=== PATIENT | female | born 1945 | race African-American/Black ===

== ENCOUNTER 2022-06-14 04:17 | Observation (INO) | payer MEDICARE, OTHER, SELFPAY ==
[2022-06-14] VITALS (15 sets, daily range): BP systolic 121–161; BP diastolic 43–77; PULSE 51–70; RESP 16–20; TEMP 36.4–36.6; O2SAT 95–99; BMI 36.6; BMI 40.1
--- NOTE | 2022-06-14 04:41 | ECG_ITS ---
APPROVED REPORT Exam: Resting ECG HR:58 bpm ECG Measurements Heart Rate 58 AXES [place] 172 P 91 QRSd 156 QRS 90 QT 471 T -18 QTc 467 Conclusion SINUS BRADYCARDIA WITH OCCASIONAL SUPRAVENTRICULAR PREMATURE COMPLEXES RIGHT BUNDLE BRANCH BLOCK [120+ ms QRS DURATION, UPRIGHT V1, 40+ ms S IN I/aVL/V4/V5/V6] MODERATE T-WAVE ABNORMALITY, CONSIDER ANTEROLATERAL ISCHEMIA [-0.1+ mV T-WAVE IN V3-V6] MODERATE T-WAVE ABNORMALITY, CONSIDER INFERIOR ISCHEMIA [-0.1+ mV T-WAVE IN II/aVF] ABNORMAL ECG UNCONFIRMED REPORT Electronically signed by : Chester Wilson MD 06/17/2022 21:17:23
[2022-06-14 05:04] LABS: Basophils # 0.1 K/mm3 (0-0.2); Basophils % 0.5 % (0.1-2.0); Eosinophils # 0.2 K/mm3 (0.0-0.4); Hematocrit 36.5 % (37.0-47.0); Hemoglobin 12.1 g/dL (12.2-16.2); Lymphocytes # 1.5 K/mm3 (0.7-4.5); Lymphocytes % 15.7 % (10-50); Mean Corpuscular HGB Conc 33.1 g/dL (31.8-35.4); Mean Corpuscular Hemoglobin 31.8 pg (27.0-31.2); Mean Corpuscular Volume 95.9 fl (81-99); Mean Platelet Volume 7.9 fl (7.4-10.4); Monocytes # 0.4 K/mm3 (0.1-1.0); Monocytes % 4.4 % (1.7-9.3); Neutrophils # 7.4 K/mm3 (1.8-7.8); Neutrophils % 77.3 % (37.0-80.0); Platelet Count 319 K/mm3 (142-424); Red Blood Count 3.81 M/mm3 (4.20-5.40); Red Cell Distribution Width 13.6 % (11.5-17.5); White Blood Count 9.6 K/mm3 (4.8-10.8)
--- NOTE | 2022-06-14 05:07 | CT_ITS ---
PROCEDURE INFORMATION: Exam: CT Abdomen And Pelvis With Contrast Exam date and time: 06/14/2022 5:40 AM Age: 76 years old Clinical indication: Nausea and vomiting and other: Diarrhea; Additional info: N/v/d TECHNIQUE: Imaging protocol: Computed tomography of the abdomen and pelvis with contrast. Radiation optimization: All CT scans at this facility use at least one of these dose optimization techniques: automated exposure control; mA and/or kV adjustment per patient size (includes targeted exams where dose is matched to clinical indication); or iterative reconstruction. Contrast material: ISOVUE; Contrast volume: 75 ml; Contrast route: IV; COMPARISON: No relevant prior studies available. FINDINGS: Lungs: Ddyy-ga-qgyyuktd peripheral reticular and ground-glass type opacities in the lung bases which are nonspecific, but are favored to be linear atelectasis/fibrosis, greater on the right. Heart: Coronary artery calcifications. Mild cardiomegaly. Diaphragm: Small to moderate hiatal hernia Liver: Possible fatty infiltration of the liver, which is suboptimally evaluated after IV contrast administration. Gallbladder and bile ducts: Normal. No calcified stones. No ductal dilation. Pancreas: Normal. No ductal dilation. Spleen: Punctate calcified splenic granulomata. Adrenal glands: Normal. No mass. Kidneys and ureters: Mild bilateral renal cortical scarring. No hydronephrosis. Stomach and bowel: Colonic diverticulosis. No evidence of acute diverticulitis. Some segments of the colon appear to have mild wall thickening, but this is favored to be due to relative nondistention. No evidence of pericolonic fat stranding. Appendix: No evidence of appendicitis. Intraperitoneal space: Unremarkable. No free air. No significant fluid collection. Vasculature: Moderate vascular calcifications Lymph nodes: Unremarkable. No enlarged lymph nodes. Urinary bladder: Unremarkable as visualized. Reproductive: Hysterectomy. Bones/joints: Severe degenerative changes of the spine. Other osteoarthritic changes. No acute fracture. Soft tissues: Unremarkable. IMPRESSION: 1. No evidence of an acute intra-abdominal process. 2. Colonic diverticulosis. 3. Vascular calcifications including coronary artery calcifications. 4. Rhtr-sg-ideupkcx peripheral reticular and ground-glass type opacities in the lung bases which are nonspecific, but are favored to be linear atelectasis/fibrosis, greater on the right. 5. Small to moderate hiatal hernia. 6. Other findings as detailed in the body of the report.
--- NOTE | 2022-06-14 05:07 | HMH.EDNVD ---
ED Disposition Clinical Impression: Vertigo, Renal insufficiency Disposition: Admitted as Observation Condition on Discharge: Fair Instructions: DI for Diarrhea and Traveler's Diarrhea -- Adult, DI for Diarrhea and Traveler's Diarrhea -- Child, DI for Nausea -- Adult, DI for Nausea -- Child Referrals: Kayla Gore PA [Primary Care Provider] - - Critical Care Critical Care Time: No Attestation: On 06/14/22, the high probability of a clinically significant, sudden or life threatening deterioration of the following system(s) required my full and direct attention, intervention and personal management. The time I documented below is in addition to time spent performing reported procedures but includes the following listed in this critical care notation. Medical Decision Making - Medical Records Medical records reviewed: Yes: I reviewed the patient's medical records. - Benjamin Inquiry Pt receiving controlled substance: No Vital Signs: 06/14/22 04:19 06/14/22 04:23 06/14/22 04:53 Temperature 97.7 F Temperature Source Oral Pulse Rate 56 L 58 L Pulse Rate [Right] 70 Respiratory Rate 20 18 18 Blood Pressure 121/43 L 143/62 H Blood Pressure [Right Arm] 121/48 L Blood Pressure Mean 69 72 Blood Pressure Mean [Right Arm] 72 Blood Pressure Source [Right Arm] Automatic Cuff 02 Sat by Pulse Oximetry 95 99 96 Oxygen Delivery Method Room Air 06/14/22 05:23 06/14/22 07:18 06/14/22 07:53 Temperature Temperature Source Pulse Rate 51 L 54 L 52 L Pulse Rate [Right] Respiratory Rate 18 18 18 Blood Pressure 145/72 H 148/65 H 128/70 Blood Pressure [Right Arm] Blood Pressure Mean 96 92 103 Blood Pressure Mean [Right Arm] Blood Pressure Source [Right Arm] 02 Sat by Pulse Oximetry 96 96 96 Oxygen Delivery Method 06/14/22 08:23 Temperature Temperature Source Pulse Rate 56 L Pulse Rate [Right] Respiratory Rate 18 Blood Pressure 141/66 H Blood Pressure [Right Arm] Blood Pressure Mean 91 Blood Pressure Mean [Right Arm] Blood Pressure Source [Right Arm] 02 Sat by Pulse Oximetry 98 Oxygen Delivery Method - Lab Data Lab results reviewed: Yes: I reviewed the patient's lab results. Lab Results 06/14/22 04:25: WBC 9.6, RBC 3.81 L, Hgb 12.1 L, Hct 36.5 L, MCV 95.9, MCH 31.8 H, MCHC 33.1, RDW 13.6, Plt Count 319, MPV 7.9, Neut % (Auto) 77.3, Lymph % (Auto) 15.7, [place] % (Auto) 4.4, Eos % (Auto) 2.0, Baso % (Auto) 0.5, Neut # (Auto) 7.4, Lymph # (Auto) 1.5, [place] # (Auto) 0.4, Eos # (Auto) 0.2, Baso # (Auto) 0.1, ESR 66 H 06/14/22 04:25: Sodium 141, Potassium 3.5, Chloride 105, Carbon Dioxide 28, Anion Gap 11.5, BUN 28 H, Creatinine 1.30 H, Estimated Creat Clear 57, Estimated GFR 40 L, Est GFR ( Amer) 48 L, Glucose 159 H, Calcium 9.7, Total Bilirubin 0.2, AST 49 H, ALT 42, Alkaline Phosphatase 137 H, Troponin I < 0.01, C-Reactive Protein 3.0, Total Protein 7.1, Albumin 4.1, Globulin 3.0, Albumin/Globulin Ratio 1.4, Procalcitonin 0.047 06/14/22 04:25: Lipase 104 06/14/22 07:15: Urine Color Yellow, Urine Appearance Clear, Urine pH 5.5, Ur Specific [place] 1.010, Urine Protein Negative, Urine Glucose (UA) Negative, Urine Ketones Negative, Urine Blood Negative, Urine Nitrate Negative, Urine Bilirubin Negative, Urine Urobilinogen 0.2, Ur Leukocyte Esterase Negative, Urine RBC Occasional, Urine WBC Occasional, Ur Squamous Epith Cells Occasional, Urine Bacteria Trace 06/14/22 07:35: SARS-CoV-2 (PCR) Not detected, Influenza A Untype (PCR) Not detected, Influenza Type B (PCR) Not detected Result diagrams: 06/14/22 04:25 06/14/22 04:25 Orders (Tests/Meds): ED MEDICATIONS Generic Name Dose Route Start Last Admin Trade Name Freq PRN Reason Stop Dose Admin Sodium Chloride 8 ml 06/14/22 04:57 Sodium Chloride 0.9% 10ml Vial IV 07/14/22 04:56 NEEDED PRN dilute pepcid Discontinued Medications Generic Name Dose Route Start Last Admin Trade Name Freq PRN Reason
[2022-06-14 05:08] LABS: Alanine Aminotransferase 42 U/L (12-78); Albumin Level 4.1 g/dl (3.5-5.0); Albumin/Globulin Ratio 1.4 (1.1-1.8); Alkaline Phosphatase 137 U/L (38-126); Anion Gap 11.5 mEq/L (5-15); Aspartate Amino Transferase 49 U/L (14-36); Bilirubin,Total 0.2 mg/dl (0.2-1.3); Blood Urea Nitrogen 28 mg/dl (7-17); Calcium 9.7 mg/dl (8.4-10.2); Carbon Dioxide 28 mmol/L (22.0-30.0); Chloride 105 mmol/L (98-107); Creatinine Clearance Estimated 57 mL/min (50-200); Estimated Glomerular Filt Rate 40 ml/min (>60); GFR (African American) 48 ML/MIN (>60); Glucose 159 mg/dl (74-100); Potassium 3.5 mmoL/L (3.5-5.1); Sodium 141 mmol/L (136-145); Total Protein,Serum 7.1 g/dl (6.3-8.2)
[2022-06-14 05:27] LABS: Procalcitonin 0.047 ng/mL (0.0-2.0)
[2022-06-14 05:31] LABS: Troponin I < 0.01 ng/ml (0.00-0.034)
--- NOTE | 2022-06-14 05:37 | PC.NURSE ---
pt going to Ct scan via wheelchair
--- NOTE | 2022-06-14 05:51 | PC.NURSE ---
pt back from ct scan
[2022-06-14 07:01] LABS: Erythrocyte Sedimentation Rate 66 mm/hr (0-30); Lipase 104 U/L (23-300)
--- NOTE | 2022-06-14 07:15 | PC.NURSE ---
report received from Marielena RN
[2022-06-14 07:20] LABS: Microscopic, Urine URINE MICROSCOPIC (MICROSCOPIC)
[2022-06-14 07:22] LABS: Appearance,Urine CLEAR (Clear); Bilirubin,Urine Negative (Negative); Blood, Urine Negative (Negative); Color,Urine YELLOW (Yellow); Glucose,Urine (UA) Negative (Negative); Ketones,Urine Negative (Negative); Leukocyte Esterase,Urine Negative (Negative); Nitrate,Urine Negative (Negative); PH,Urine 5.5 (5.0-8.5); Protein,Urine Negative (Negative); Urobilinogen,Urine 0.2 EU/dl (0.2)
[2022-06-14 07:36] LABS: Bacteria,Urine Trace /lpf; RBC,Urine Occasional #/hpf (0-3); Squamous Epithelial Cell,Urine Occasional #/hpf (0-5); WBC,Urine Occasional #/hpf (0-3)
[2022-06-14 07:40] LABS: Coronavirus 19, PCR Not Detected (NotDetected); Influenza A, PCR Not Detected (NotDetected); Influenza B, PCR Not Detected (NotDetected)
--- NOTE | 2022-06-14 07:41 | PC.NURSE ---
COVID swab sent to lab. Pt sleeping with lights off at this time. Family at bedside.
--- NOTE | 2022-06-14 07:58 | PC.NURSE ---
MD at bedside speaking with pt and family member updating on test results.
--- NOTE | 2022-06-14 08:00 | PC.NURSE ---
Called lab to check on status of COVID results. Lab staff advised they should be resulted in approximately 3 minutes.
--- NOTE | 2022-06-14 08:22 | PC.NURSE ---
MD at bedside speaking with pt about remaining test results and possibility of admission.
--- NOTE | 2022-06-14 08:27 | PC.NURSE ---
Paging Dr Ward at this time.
--- NOTE | 2022-06-14 08:43 | PC.NURSE ---
speaking to Dr Ward
--- NOTE | 2022-06-14 08:46 | PC.NURSE ---
pt vomiting again new orders by
--- NOTE | 2022-06-14 08:50 | PC.NURSE ---
spoke with house about admission
--- NOTE | 2022-06-14 09:03 | PC.NURSE ---
troponin drawn and sent to the lab. family remains at the bedside. no needs voiced by pt
--- NOTE | 2022-06-14 09:15 | HMH.PHAINT ---
VERIFIED HOME MEDICATION LIST USING LIST FROM [facility]
[2022-06-14 09:27] LABS: Troponin I 0.02 ng/ml (0.00-0.034)
--- NOTE | 2022-06-14 09:31 | PC.NURSE ---
went in to check on pt she is sleeping with no vomiting updated daughter on bed status
--- NOTE | 2022-06-14 10:10 | PC.NURSE ---
rounded on pt. updated that we have a bed assignment and she would be to a room soon.
--- NOTE | 2022-06-14 10:25 | PC.NURSE ---
called report to matias maldonado rn
--- NOTE | 2022-06-14 10:25 | PC.NURSE ---
Got report from [facility] Nurse
--- NOTE | 2022-06-14 10:27 | PC.NURSE ---
UPDATED DAUGHTER THAT REPORT WAS CALLED AND THEY WERE COMING TO GET PT , PT IS STILL SLEEPING NO VOMITING
--- NOTE | 2022-06-14 10:40 | PC.NURSE ---
pt to med/surg via [place]
--- NOTE | 2022-06-14 10:43 | P.CONPHA_ITS ---
[facility] Pharmacy VTE Monitoring - Patient Demographics Admission date: 06/14/22 Report Date: 06/14/22 Time: 10:43 Allergies/Adverse Reactions: Patient Allergies No Known Allergies Allergy (Verified 02/23/18 12:35) Height: 1.65 m Weight: 99.79 kg Patient Problems: Current Active Problems Vertigo (Acute) Renal insufficiency (Acute) - VTE Risk Labs: VTE Related Lab Results Hgb 12.1 g/dL (12.2-16.2) L 06/14/22 04:25 Hct 36.5 % (37.0-47.0) L 06/14/22 04:25 Plt Count 319 K/mm3 (142-424) 06/14/22 04:25 BUN 28 mg/dl (7-17) H 06/14/22 04:25 Creatinine 1.30 mg/dl (0.52-1.04) H 06/14/22 04:25 Estimated Creat Clear 57 mL/min (50-200) 06/14/22 04:25 - Prophylaxis VTE Prophylaxis Ordered?: Yes Types of VTE Prophylaxis: TEDS Knee High Location of Applied Device: Bilateral Lower Extremeties
--- NOTE | 2022-06-14 13:15 | HMH.HP ---
*Admission Date: 06/14/22 *Chief complaint: Dizziness and vomiting *History of present illness: Nathalie is a 76-year-old -[place] female with a history of hypertension developed sudden onset of dizziness about 1 AM this morning while she was sitting and talking with a friend. No associated headaches or blurred vision. She has been having some pain in her right ear recently. Her symptoms progressed to nausea and vomiting over the course of the next few hours. She also had a loose stool but no arnel diarrhea. No abdominal pain. She presented to the emergency room about 5 AM with the symptoms. Work-up in the ER has been fairly nonrevealing. White count is normal. BUN is mildly elevated GFR is 48. CT scan of the abdomen shows no acute intra-abdominal processes. She was given IV fluids, IV Reglan, Zofran, and Phenergan in the ER but persisted with dizziness and nausea. She is also unable to stand and walk because of the dizziness. For this reason she is being admitted for further evaluation and monitoring. [facility] History Medical History: Reports:: Hyperlipidemia, Hypertension Denies:: Cancer, Diabetes Mellitus Type 1, Diabetes Mellitus Type 2, MRSA *Have you ever received a pneumonia vaccine?: Yes *Have you received a flu vaccine this season?: Yes Other Medical History: Reports: Anemia (Iron deficient) Other Surgeries: Yes: No Previous Surgery, Hysterectomy-Total (Patient) Amputation: No - *Social History Last grade of school completed: High school graduate Smoking Status: Never smoker Alcohol Intake: never Substance Use Type: denies use *Occupational Status:: retired *Travel in the last 8 weeks: None Family Hx:: Asthma, Heart Attack, Hypertension, Stroke Review of Systems - Constitutional Denies body ache(s), Denies chills, Denies fever(s) - Eyes Reports blurry vision, Denies double vision - ENT Reports mouth lesions (Sore gums on the right side), Denies headache(s), Denies hearing loss, Denies sinus pressure - *Cardiovascular Reports rapid, pounding, or irregular heartbeat (Patient), Denies chest pain, Denies shortness of breath, Denies leg swelling - *Respiratory Denies chest congestion, Denies shortness of breath - *Gastrointestinal Denies abdominal pain Comments: SEE HPI - *Genitourinary Denies difficulty urinating - *Musculoskeletal Denies joint pain, Denies muscle weakness - Integumentary/Breasts Denies hair loss, Denies change in skin color - *Neurologic Reports dizziness, Denies confusion, Denies frequent falls, Denies seizure-like activity - Psychiatric Denies anxiety, Denies depression Meds Home Medications Medication Instructions Recorded Confirmed Type atorvastatin 10 mg tablet 10 mg PO HS 02/23/18 06/14/22 History furosemide 20 mg tablet 20 mg PO DAILY 02/23/18 06/14/22 History Amlodipine Besylate 5 mg PO DAILY 06/14/22 06/14/22 History Benazepril HCl [Lotensin] 20 mg PO DAILY 06/14/22 06/14/22 History Levocetirizine Dihydrochloride 5 mg PO DAILY 06/14/22 06/14/22 History Montelukast Sodium [Singulair 10mg 10 mg PO PM 06/14/22 06/14/22 History tablet] atenoloL [Atenolol 100mg Tab] 100 mg PO BID 06/14/22 06/14/22 History Allergies Allergy/AdvReac Type Severity Reaction Status Date / Time No Known Allergies Allergy Verified 02/23/18 12:35 Exam Vital signs and Labs for Last 24 Hours: Temp Pulse Resp BP Pulse Ox 97.5 F L 57 L 16 150/72 H 98 06/14/22 10:56 06/14/22 10:56 06/14/22 10:56 06/14/22 10:56 06/14/22 10:56 Laboratory Results - last 24 hr 06/14/22 04:25: WBC 9.6, RBC 3.81 L, Hgb 12.1 L, Hct 36.5 L, MCV 95.9, MCH 31.8 H, MCHC 33.1, RDW 13.6, Plt Count 319, MPV 7.9, Neut % (Auto) 77.3, Lymph % (Auto) 15.7, [place] % (Auto) 4.4, Eos % (Auto) 2.0, Baso % (Auto) 0.5, Neut # (Auto) 7.4, Lymph # (Auto) 1.5, [place] # (Auto) 0.4, Eos # (Auto) 0.2, Baso # (Auto) 0.1, ESR 66 H 06/14/22 04:25: Sodium 141, Potassium 3.5, Chloride 105, Carbon Dioxide 28, A
[2022-06-14 15:02] LABS: Troponin I 0.03 ng/ml (0.00-0.034)
--- NOTE | 2022-06-14 15:28 | PC.NURSE ---
Pt is A/Ox4. She ate lunch and has tolerated it well. Daughter is at bedside. She has not had any episodes of vertigo, diarrhea, or nausea at this time.
--- NOTE | 2022-06-14 18:26 | PC.NURSE ---
VSS, resting in bed with eyes closed; No acute distress noted at this time call light within reach bed at lowest level for safety; will continue to monitor.
[2022-06-15 04:00] VITALS: BP 161/64; PULSE 68; RESP 20; TEMP 36.7; O2SAT 96
[2022-06-15 04:40] VITALS: BMI 19.1
--- NOTE | 2022-06-15 04:49 | PC.NURSE ---
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
[2022-06-15 07:22] LABS: Basophils % 0.4 % (0.1-2.0); Eosinophils # 0.1 K/mm3 (0.0-0.4); Eosinophils % 1.3 % (0.1-12.0); Hematocrit 38.2 % (37.0-47.0); Hemoglobin 12.6 g/dL (12.2-16.2); Lymphocytes # 0.9 K/mm3 (0.7-4.5); Lymphocytes % 9.4 % (10-50); Mean Corpuscular HGB Conc 32.9 g/dL (31.8-35.4); Mean Corpuscular Hemoglobin 31.7 pg (27.0-31.2); Mean Corpuscular Volume 96.3 fl (81-99); Mean Platelet Volume 7.7 fl (7.4-10.4); Monocytes # 0.4 K/mm3 (0.1-1.0); Neutrophils # 8.5 K/mm3 (1.8-7.8); Neutrophils % 84.9 % (37.0-80.0); Platelet Count 294 K/mm3 (142-424); Red Blood Count 3.96 M/mm3 (4.20-5.40); Red Cell Distribution Width 13.7 % (11.5-17.5)
[2022-06-15 07:39] LABS: Anion Gap 9.1 mEq/L (5-15); Blood Urea Nitrogen 16 mg/dl (7-17); Calcium 9.6 mg/dl (8.4-10.2); Carbon Dioxide 27 mmol/L (22.0-30.0); Chloride 106 mmol/L (98-107); Creatinine Clearance Estimated 34 mL/min (50-200); Estimated Glomerular Filt Rate 48 ml/min (>60); GFR (African American) 58 ML/MIN (>60); Glucose 110 mg/dl (74-100); Potassium 4.1 mmoL/L (3.5-5.1); Sodium 138 mmol/L (136-145)
[2022-06-15 08:00] VITALS: BP 168/85; PULSE 76; RESP 16; TEMP 37.8; O2SAT 95
--- NOTE | 2022-06-15 08:35 | P.PN_ITS ---
Internal Medicine - PN: Subj *Date: 06/15/22 *Time: 08:35 Interval history: She states her asthma prep last night. She was given a Ventolin inhaler which has helped. Terms of her vertigo, her dizziness has almost completely resolved. She has had no further vomiting or diarrhea. She has been able to tolerate some breakfast. No abdominal pain. Exam Vital signs and Labs for Last 24 Hours: Temp Pulse Resp BP Pulse Ox 100.0 F H 76 16 168/85 H 95 06/15/22 08:00 06/15/22 08:00 06/15/22 08:00 06/15/22 08:00 06/15/22 08:00 Laboratory Results - last 24 hr 06/14/22 13:00: Troponin I 0.03 06/15/22 06:26: WBC 10.0, RBC 3.96 L, Hgb 12.6, Hct 38.2, MCV 96.3, MCH 31.7 H, MCHC 32.9, RDW 13.7, Plt Count 294, MPV 7.7, Neut % (Auto) 84.9 H, Lymph % (Auto) 9.4 L, [place] % (Auto) 4.0, Eos % (Auto) 1.3, Baso % (Auto) 0.4, Neut # (Auto) 8.5 H, Lymph # (Auto) 0.9, [place] # (Auto) 0.4, Eos # (Auto) 0.1, Baso # (Auto) 0.0 06/15/22 06:26: Sodium 138, Potassium 4.1, Chloride 106, Carbon Dioxide 27, Anion Gap 9.1, BUN 16 D, Creatinine 1.10 H, Estimated Creat Clear 34, Estimated GFR 48 L, Est GFR ( Amer) 58 L D, Glucose 110 H, Calcium 9.6 I & O for Last 24 hours: Intake & Output 06/13/22 06/14/22 06/15/22 06/16/22 11:59 11:59 11:59 11:59 Intake Total 2 / 1932 720 / 720 Output Total 1225 / 1225 Balance 707 / 707 720 / 720 Weight 234 lb 3 oz 111 lb 9.6 oz Narrative: She is up in a chair. She is alert and oriented. No respiratory distress. Lungs are clear to auscultation although slightly diminished in the bases. Heart is regular. Abdomen soft and nondistended with no tenderness. Assessment and Plan (1) Vertigo Status: Acute Category: Medical Code(s): R42 - Dizziness and giddiness (2) Nausea and vomiting Status: Acute Category: Medical Code(s): R11.2 - Nausea with vomiting, uns pecified (3) Hypertension Status: Acute Category: Medical Code(s): I10 - Essential (primary) hypertension (4) Renal insufficiency Status: Acute Category: Medical Code(s): N28.9 - Disorder of kidney and ureter, unspecified (5) Asthma Status: Acute Category: Medical Code(s): J45.909 - Unspecified asthma, uncomplicated - Assessment and plan all Dx Assessment and Plan for all problems:: Vertigo improved. We will check a chest x-ray and if this is normal, she can likely discharge home later today.
--- NOTE | 2022-06-15 09:31 | XR_ITS ---
PROCEDURE INFORMATION: Exam: XR Chest Exam date and time: 06/15/2022 12:19 PM Age: 76 years old Clinical indication: Dyspnea and shortness of breath; Patient HX: Symptoms started this past ; Additional info: SOA, wheezing TECHNIQUE: Imaging protocol: Radiologic exam of the chest. Views: 2 views. COMPARISON: CT ABDOMEN PELVIS W CON 06/14/2022 5:40 AM FINDINGS: Lungs: Unremarkable. No consolidation. Pleural spaces: Unremarkable. No pleural effusion. No pneumothorax. Heart/Mediastinum: Unremarkable. No cardiomegaly. Bones/joints: Unremarkable. IMPRESSION: No acute findings.
--- NOTE | 2022-06-15 23:48 | HMH.DCSUM ---
General - General Admission date:: 06/14/22 <Patrick Ward - 06/19/22 22:42> 06/14/22 <Kayla Gore - 06/15/22 23:50> Discharge date: 06/15/22 <Kayla Gore - 06/15/22 23:50> HPI HPI: Nathalie is a 76-year-old -[place]er female with a history of hypertension developed sudden onset of dizziness about 1 AM this morning while she was sitting and talking with a friend. No associated headaches or blurred vision. She has been having some pain in her right ear recently. Her symptoms progressed to nausea and vomiting over the course of the next few hours. She also had a loose stool but no arnel diarrhea. No abdominal pain. She presented to the emergency room about 5 AM with the symptoms. Work-up in the ER has been fairly nonrevealing. White count is normal. BUN is mildly elevated GFR is 48. CT scan of the abdomen shows no acute intra-abdominal processes. She was given IV fluids, IV Reglan, Zofran, and Phenergan in the ER but persisted with dizziness and nausea. She is also unable to stand and walk because of the dizziness. For this reason she is being admitted for further evaluation and monitoring. <Kayla Gore - 06/15/22 23:50> Hospital Course Hospital Course: The patient was admitted and gently hydrated and started on meclizine. She was also started on Zofran as needed for nausea. The patient did have an asthma flare and was given a Ventolin inhaler, which helped. Her dizziness almost completely resolved and she had no further vomiting or diarrhea. She was able to tolerate breakfast. A chest x-ray was ordered due to the asthma, and was normal. She was stable to be discharged home on meclizine and will follow-up in the office. <Kayla Gore - 06/15/22 23:50> Objective Vital signs: Temp Pulse Resp BP Pulse Ox 100.0 F H 76 16 168/85 H 95 06/15/22 08:00 06/15/22 08:00 06/15/22 08:00 06/15/22 08:00 06/15/22 08:00 <Patrick Ward - 06/19/22 22:42> Temp Pulse Resp BP Pulse Ox 100.0 F H 76 16 168/85 H 95 06/15/22 08:00 06/15/22 08:00 06/15/22 08:00 06/15/22 08:00 06/15/22 08:00 <Kayla Gore - 06/15/22 23:50> Narrative: She is up in a chair. She is alert and oriented. No respiratory distress. Lungs are clear to auscultation although slightly diminished in the bases. Heart is regular. Abdomen soft and nondistended with no tenderness. <Kayla Gore - 06/15/22 23:50> Results Labs on day of discharge: Labs from last 24 hours 06/15/22 06/15/22 06:26 06:26 WBC 10.0 RBC 3.96 L Hgb 12.6 Hct 38.2 MCV 96.3 MCH 31.7 H MCHC 32.9 RDW 13.7 Plt Count 294 MPV 7.7 Neut % (Auto) 84.9 H Lymph % (Auto) 9.4 L [place] % (Auto) 4.0 Eos % (Auto) 1.3 Baso % (Auto) 0.4 Neut # (Auto) 8.5 H Lymph # (Auto) 0.9 [place] # (Auto) 0.4 Eos # (Auto) 0.1 Baso # (Auto) 0.0 Sodium 138 Potassium 4.1 Chloride 106 Carbon Dioxide 27 Anion Gap 9.1 BUN 16 D Creatinine 1.10 H Estimated Creat Clear 34 Estimated GFR 48 L Est GFR ( Amer) 58 L D Glucose 110 H Calcium 9.6 <Kayla Gore - 06/15/22 23:50> DS: Diagnosis - Discharge Diagnosis (1) Vertigo Status: Acute (2) Nausea and vomiting Status: Acute (3) Hypertension Status: Acute (4) Renal insufficiency Status: Acute (5) Asthma Status: Acute <Kayla Gore - 06/15/22 23:48> (1) Vertigo Status: Acute (2) Nausea and vomiting Status: Acute (3) Hypertension Status: Acute (4) Renal insufficiency Status: Acute (5) Asthma Status: Acute <Patrick Ward - 06/19/22 22:42> Discharge Plan - Patient Discharge Instructions ACTIVITY: Continue current activity <Kayla Gore - 06/15/22 23:50> DIET: continue same diet <Kayla Gore - 06/15/22 23:50> Patient Instructions: DI for High Blood Pressure, DI for Vertigo <Patrick Ward - 06/19/22 22:
--- NOTE | 2022-06-16 14:47 | CARE MANAGER ---
Attempted post-discharge phone interview with patient, no answer and voice mail box has not been set up.
== END 2022-06-15 14:15 | disposition home or self-care (01) ==
LOC: ER 06:34 → 2ND 08:57
PROVIDERS: Admitting Provider Family Medicine; Emergency Provider Emergency Medicine; PCP Physician Assistant; Visit Provider Family Medicine
DX: K52.9 Noninfective gastroenteritis and colitis, unspecified (principal); I10 Essential (primary) hypertension; E78.5 Hyperlipidemia, unspecified; Z79.899 Other long term (current) drug therapy; R42 Dizziness and giddiness; R11.2 Nausea with vomiting, unspecified; J45.909 Unspecified asthma, uncomplicated; Z20.822 Contact with and (suspected) exposure to COVID-19
CPT/HCPCS: G0378; 36415; 71046; 74177; 80048; 80053; 81001; 83690; 84145; 84484; 85025; 85651; 86140; 93005; 99285; C9803; J2405; Q9967; U0003; U0005

== ENCOUNTER → 2022-06-25 15:07 | Outpatient (CLI) | payer MEDICARE, OTHER, SELFPAY ==
--- NOTE | 2022-06-25 | CA_ITS ---
FINAL REPORT TECHNIQUE: Color Doppler, duplex Doppler and compression sonography of the right lower extremity venous system was performed. CLINICAL HISTORY: HTN, HLD. Patient states that her right leg began swelling a couple of days ago. Denies trauma. FINDINGS: There is no evidence of deep venous thrombosis from the level of the groin to the calf. The veins are patent and compressible. IMPRESSION: No evidence of deep venous thrombosis right lower extremity. Reviewed, Interpreted and Dictated by Dawit Hull III, MD Transcribed by Yana Gandhi Authenticated and [facility]
== END ==
PROVIDERS: PCP Physician Assistant; Visit Provider Physician Assistant
DX: R60.0 Localized edema (principal); M79.604 Pain in right leg
CPT/HCPCS: 93971

== ENCOUNTER → 2022-08-22 14:48 | Outpatient (CLI) | payer MEDICARE, OTHER, SELFPAY ==
--- NOTE | 2022-08-22 14:55 | XR_ITS ---
FINAL REPORT CLINICAL HISTORY: LEFT FOOT PAIN FINDINGS: Left foot Three views were obtained. There is no acute fracture or dislocation. There are moderate degenerative changes of the midfoot. Mild calcaneal spurring is identified. No soft tissue abnormality is identified. IMPRESSION: No acute process. Reviewed, Interpreted and Dictated by Dontrell Gomes MD Transcribed by Yana Gandhi Authenticated and [facility]
--- NOTE | 2022-08-22 15:10 | ECG_ITS ---
APPROVED REPORT Exam: Resting ECG HR:71 bpm ECG Measurements Heart Rate 71 AXES QRSd 130 QRS 77 QT 437 T -53 QTc 459 Conclusion ATRIAL FIBRILLATION RIGHT BUNDLE BRANCH BLOCK [120+ ms QRS DURATION, UPRIGHT V1, 40+ ms S IN I/aVL/V4/V5/V6] MODERATE T-WAVE ABNORMALITY, CONSIDER LATERAL ISCHEMIA [-0.1+ mV T-WAVE IN I/aVL/V5/V6] MODERATE T-WAVE ABNORMALITY, CONSIDER INFERIOR ISCHEMIA [-0.1+ mV T-WAVE IN II/aVF] ABNORMAL ECG UNCONFIRMED REPORT Electronically signed by : Chester Wilson MD 08/23/2022 16:06:56
== END ==
PROVIDERS: PCP Physician Assistant; Visit Provider Physician Assistant
DX: I49.9 Cardiac arrhythmia, unspecified (principal); M79.672 Pain in left foot
CPT/HCPCS: 73630; 93005

== ENCOUNTER → 2023-01-21 10:53 | Outpatient (CLI) | payer MEDICARE, OTHER, SELFPAY ==
--- NOTE | 2023-01-21 | ECG_ITS ---
APPROVED REPORT Exam: Resting ECG HR:72 bpm ECG Measurements Heart Rate 72 AXES QRSd 141 QRS 92 QT 428 T -9 QTc 451 Conclusion ATRIAL FLUTTER/TACHYCARDIA RIGHT BUNDLE BRANCH BLOCK [120+ ms QRS DURATION, UPRIGHT V1, 40+ ms S IN I/aVL/V4/V5/V6] MODERATE T-WAVE ABNORMALITY, CONSIDER LATERAL ISCHEMIA [-0.1+ mV T-WAVE IN I/aVL/V5/V6] MODERATE T-WAVE ABNORMALITY, CONSIDER INFERIOR ISCHEMIA [-0.1+ mV T-WAVE IN II/aVF] ABNORMAL ECG UNCONFIRMED REPORT Electronically signed by : Chester Wilson MD 01/21/2023 20:19:05
--- NOTE | 2023-01-21 11:29 | CA_ITS ---
APPROVED REPORT EXAM: Comprehensive 2D, Doppler, and color-flow Echocardiogram Tap Out Operator: Shahrzad Lockwood, NU, RVS Ht: 5 ft 5 in Wt: 227lbs BSA: 2.09 BP: 140/74 mmHg Indications: AFIB, AFLUTTER, HTN 2D Dimensions Aortic Root 2.53 cm LA Volume 70.10 mL Left Atrium 4.15 cm LA Volume Index 32.80 mL/m2 (M/F) 16-34 LVOT 2.01 cm (M/F) 1.5-2.5 M-Mode Dimensions RVDd 3.00 cm (0.9-2.6) LA Diam 4.04 cm (1.9-4.0) LVDd 4.93 cm (3.5-5.7) Ao Diam 2.64 cm (2.0-3.7) LVDs 3.04 cm (3.5-5.7) IVSd 0.86 cm (0.6-1.1) PWd 0.82 cm (0.6-1.1) EF (Teich) 68.40% EPSs 0.18 cm FS 38.30% EDV (Teich) 114.40 mL TAPSE 2.13 (<1.7) ESV (Teich) 36.20 mL LV Diastology E Decel Time 137.00 (160-240 msec) E/A Ratio 1.91 MED E' 7.30 (< 7 cm/sec) MED A' 3.30 cm/s E'/MED E' Ratio 11.88 (>14) LAT E' 7.40 (<10 cm/sec) LAT A' 3.50 cm/s E/LAT E' Ratio 11.72 (>14) Aortic Valve LVOT Max 129.00 (70-110 cm/s) LVOT VTI 32.31 cm AoV Peak Krzysztof. 149.00 (50-130 cm/s) AO Peak GR. 8.90 mmHg AO Mean GR. 5.10 (<5 mmHg) AO VTI 38.65 (18-25 cm) MARLENA (VTI) 2.65 (2.5-4.5 cm2) Mitral Valve MV A Velocity 45.00 (40-130 cm/s) E/A Ratio 1.91 MV Decel. Time 137.00 (160-240 ms) MV PHT 50.00 ms Pulmonary Valve PV Peak Velocity 82.00 (50-150 cm/s) Tricuspid Valve TR P. Velocity 322.00 cm/s RAP Estimate 10.00 mmHg RVSP 51.60 mmHg Left Ventricle Technically difficult study because of the patient factors and poor acoustic windows. Left atrium is moderately enlarged, left ventricle is normal size mild concentric left ventricular hypertrophy, estimated ejection fraction 55% with no regional wall motion abnormality, endocardial surfaces are poorly visualized. Diastolic parameters are inconclusive. Right Ventricle Right atrium and right ventricle moderately enlarged with normal contractility. Aortic Valve Aortic valve is thickened and calcified without Doppler evidence of aortic stenosis or aortic insufficiency. Mitral Valve Mitral valve leaflets are minimally thickened, there is mild mitral regurgitation. Tricuspid Valve Tricuspid grossly normal, there is mild tricuspid regurgitation, calculated right ventricular systolic pressure is 52 mmHg. Pulmonic Valve Pulmonic valve is poorly visualized. Great Vessels Aortic root normal size. Inferior vena cava is poorly visualized. Pericardium No significant pericardial effusion noted. Conclusion 1. Biatrial enlargement, normal left ventricular size, mild concentric left ventricular hypertrophy, estimated ejection fraction 55% with no regional wall motion abnormality, diastolic parameters are inconclusive. 2. Moderately enlarged right ventricle with normal contractility. 3. Mild mitral and tricuspid regurgitation, calculated right ventricular systolic pressure is 52 mmHg. 4. No significant pericardial effusion noted. 5. Inferior vena cava is poorly visualized. Electronically signed by : Jovi Horowitz MD 01/22/2023 06:22:51
== END ==
PROVIDERS: PCP Physician Assistant; Visit Provider Physician Assistant
DX: I10 Essential (primary) hypertension (principal); R06.02 Shortness of breath
CPT/HCPCS: 93005; 93306

== ENCOUNTER 2023-04-06 08:05 | Day surgery (SDC) | payer MEDICARE, OTHER, SELFPAY ==
[2023-04-06 08:09] VITALS: BMI 31.0
[2023-04-06 08:13] VITALS: BMI 38.6
[2023-04-06 08:33] VITALS: BP 142/79; PULSE 61; RESP 20; O2SAT 97
--- NOTE | 2023-04-06 09:11 | ECG_ITS ---
APPROVED REPORT Exam: Resting ECG HR:60 bpm ECG Measurements Heart Rate 60 AXES HI 199 P 75 QRSd 138 QRS 90 QT 432 T -32 QTc 434 Conclusion ELECTRONIC VENTRICULAR PACEMAKER ABNORMAL RHYTHM ECG UNCONFIRMED REPORT Electronically signed by : Chester Wilson MD 04/06/2023 21:14:33
--- NOTE | 2023-04-06 09:19 | SUR.PHASEII ---
Case cancelled, procedure not necessary, patient in sinus
== END 2023-04-06 09:21 | disposition home or self-care (01) ==
PROVIDERS: PCP Physician Assistant; Visit Provider Internal Medicine
DX: I48.0 Paroxysmal atrial fibrillation (principal); Z53.09 Procedure and treatment not carried out because of other contraindication
CPT/HCPCS: 93005

== ENCOUNTER → 2023-09-30 12:25 | Outpatient (CLI) | payer MEDICARE, OTHER, SELFPAY ==
--- NOTE | 2023-09-30 12:32 | XR_ITS ---
FINAL REPORT CLINICAL HISTORY: LOW BACK PAIN FINDINGS: AP, lateral, and oblique views of the lumbar spine were obtained. There is no acute fracture or acute malalignment. Vertebral body height is preserved. There is multilevel degenerative disc disease present, most severe at the L2-3 level.. No acute paraspinal abnormality is identified. IMPRESSION: No acute osseous abnormalities lumbar spine. Reviewed, Interpreted and Dictated by Huong Chu MD Transcribed by Peyton Nickerson Authenticated and [facility]
== END ==
PROVIDERS: PCP Physician Assistant; Visit Provider Physician Assistant
DX: M54.50 Low back pain, unspecified (principal)
CPT/HCPCS: 72110

== ENCOUNTER 2023-10-06 07:44 | Day surgery (SDC) | payer MEDICARE, OTHER, SELFPAY ==
[2023-10-06 08:15] VITALS: BP 133/114; PULSE 70; RESP 18; TEMP 36.5; O2SAT 97; BMI 38.0
[2023-10-06 08:42] VITALS: BP 186/90; PULSE 73; RESP 19; O2SAT 99
[2023-10-06 08:52] VITALS: BP 180/94; PULSE 53; RESP 19; O2SAT 99
[2023-10-06 08:58] VITALS: BP 185/82; PULSE 57; RESP 20; O2SAT 98
[2023-10-06 09:10] VITALS: BP 174/95; PULSE 55; RESP 19; TEMP 36.3; O2SAT 100
[2023-10-06 09:26] VITALS: BP 174/95; PULSE 55; RESP 19; TEMP 36.3; O2SAT 100
== END 2023-10-06 09:26 | disposition home or self-care (01) ==
PROVIDERS: PCP Physician Assistant; Visit Provider Ophthalmology
PROC: (CPT 66982; principal; 2023-10-06 08:30)
DX: H25.811 Combined forms of age-related cataract, right eye (principal); H57.03 Miosis
CPT/HCPCS: 66982; V2632

== ENCOUNTER 2023-12-02 15:33 | Outpatient (CLI) | payer MEDICARE, OTHER, SELFPAY ==
--- NOTE | 2023-12-02 | ECG_ITS ---
APPROVED REPORT Exam: Resting ECG HR:80 bpm ECG Measurements Heart Rate 80 AXES QRSd 139 QRS 76 QT 387 T -20 QTc 423 Conclusion ELECTRONIC VENTRICULAR PACEMAKER ABNORMAL RHYTHM ECG UNCONFIRMED REPORT Electronically signed by : Chester Wilson MD 12/03/2023 20:10:40
== END 2023-12-02 23:59 ==
PROVIDERS: PCP Physician Assistant; Visit Provider Physician Assistant
DX: I48.0 Paroxysmal atrial fibrillation (principal)
CPT/HCPCS: 93005

== ENCOUNTER 2024-03-11 15:10 | Outpatient (CLI) | payer MEDICARE, OTHER, SELFPAY ==
--- NOTE | 2024-03-11 15:15 | XR_ITS ---
FINAL REPORT CLINICAL HISTORY: CARPAL TUNNEL FINDINGS: RIGHT HAND Three views demonstrate no acute fracture or dislocation. There is mild DIP and PIP joint space narrowing consistent with osteoarthritis. There are mild hypertrophic changes at the basilar joint. The soft tissues are unremarkable. IMPRESSION: Degenerative changes with no acute bony abnormality. Reviewed, Interpreted and Dictated by Mike Carr MD Transcribed by Edwige Wilson Authenticated and [facility]
--- NOTE | 2024-03-11 15:15 | XR_ITS ---
FINAL REPORT CLINICAL HISTORY: PIRIFORMIS SYNDROME FINDINGS: LUMBAR SPINE 5 views were obtained. There is no acute fracture. There is no malalignment. Vertebral body height is maintained. There is mild to moderate to space narrowing at L2-3, L3-4, and L4-5. There is no soft tissue abnormality. IMPRESSION: No acute bony abnormality. Mild to moderate disc space narrowing from L2-3 through L4-5. Reviewed, Interpreted and Dictated by Mike Carr MD Transcribed by Edwige Wilson Authenticated and [facility]
--- NOTE | 2024-03-11 15:15 | XR_ITS ---
FINAL REPORT CLINICAL HISTORY: TRIGGER MIDDLE FINGER LT HAND FINDINGS: LEFT HAND Three views demonstrate no acute fracture or dislocation. There is mild DIP and PIP joint space narrowing consistent with osteoarthritis. There are mild hypertrophic changes at the basilar joint. The soft tissues are unremarkable. IMPRESSION: Degenerative changes with no acute bony abnormality. Reviewed, Interpreted and Dictated by Mike Carr MD Transcribed by Edwige Wilson Authenticated and . [facility]
== END 2024-03-11 23:59 | disposition home or self-care (01) ==
LOC: RAD 15:12
PROVIDERS: PCP Physician Assistant; Visit Provider Physician Assistant
DX: G56.01 Carpal tunnel syndrome, right upper limb (principal); G57.02 Lesion of sciatic nerve, left lower limb; M65.332 Trigger finger, left middle finger
CPT/HCPCS: 72110; 73130

== ENCOUNTER 2024-04-07 12:59 | Outpatient (CLI) | payer MEDICARE, OTHER, SELFPAY ==
--- NOTE | 2024-04-07 13:05 | XR_ITS ---
FINAL REPORT CLINICAL HISTORY: Rt wrist pain COMPARISON: None FINDINGS: RIGHT WRIST: 3 images of the right wrist were obtained. There is no evidence of fracture or dislocation. Mild degenerative change is present. There are cysts present in multiple carpal bones. There is no soft tissue abnormality identified. IMPRESSION: No acute bony abnormality. Mild degenerative change as described above. Reviewed, Interpreted and Dictated by Dawit Hull III, MD Transcribed by Peyton Nickerson Authenticated and [facility]
== END 2024-04-07 23:59 | disposition home or self-care (01) ==
LOC: RAD 13:01
PROVIDERS: PCP Physician Assistant; Visit Provider Orthopaedic Surgery
DX: M25.531 Pain in right wrist (principal)
CPT/HCPCS: 73110

== ENCOUNTER 2024-04-25 11:44 | Outpatient (CLI) | payer MEDICARE, OTHER, SELFPAY ==
[2024-04-25 13:06] LABS: Free Thyroxine Index 1.8 ug/dL (5.93-13.13); T4 (Thyroxine) 5.7 ug/dl (5.53-11.0); Triiodothryronine (T3) Uptake 32 % (23.5-40.5)
[2024-04-25 13:20] LABS: Thyroid Stimulating Hormone 2.69 uIU/mL (0.465-4.68)
== END 2024-04-25 23:59 | disposition home or self-care (01) ==
LOC: LAB 11:45
PROVIDERS: PCP Physician Assistant; Visit Provider Physician Assistant
DX: I48.92 Unspecified atrial flutter (principal); I10 Essential (primary) hypertension
CPT/HCPCS: 36415; 82533; 82787; 84436; 84443; 84479

== ENCOUNTER 2024-05-05 09:47 | Day surgery (SDC) | payer MEDICARE, OTHER, SELFPAY ==
--- NOTE | 2024-05-05 | CA_ITS ---
APPROVED REPORT EXAM: Comprehensive 2D, Doppler, and color-flow Echocardiogram with contrast [employer]: Chantell Hines RVT Ht: 5 ft 4 in Wt: 231lbs BSA: 2.08 BP: 169/70 mmHg Indications: AFLUTTER/A-FIB,HTN,SOA Echo Enhancing Agent Indication: Rule out thrombus Agent(s) / Amount(s) Used: Definity 3 cc Procedure After obtaining informed consent, patient underwent transesophageal echo in the [facility]. Type of Sedation : MAC Sedation was administered by Robert [email or web address] Sedation start time: 11:50 Case end Time: 12:03 Transesophageal probe was inserted and advanced into esophagus without difficulty by Dr. Oseas Aparicio. The DEQUAN was performed without complications. Synchronized Cardioversion acheived with 150 Joules after 1 attempt(s). Throughout the procedure, the blood pressure, pulse oximetry, cardiac rhythm, and rate were monitored. The patient tolerated the procedure without adverse effects. Recovery from conscious sedation was uneventful and vital signs were stable. Left Ventricle The left ventricle is normal size. The left ventricular systolic function is normal. The left ventricular ejection fraction is within the normal range. There is normal left ventricular wall thickness. There is normal LV segmental wall motion. LVEF is 55%. Right Ventricle Right ventricle is mildly dilated. Right ventricle is mildly hypokinetic. Atria The left atrium is dilated. No thrombus is visualized in the left atrium or the left atrial appendage (KELLEN). Ultrasound enhancing agent administration into the KELLEN demonstrates no evidence of filling defects. The right atrium is dilated. The interatrial septum is intact with no evidence for an atrial septal defect. Aortic Valve The aortic valve is mildly thickened. Trace aortic regurgitation. Mitral Valve The mitral valve is normal in structure. No evidence of mitral valve stenosis. Mild mitral regurgitation. Tricuspid Valve The tricuspid valve leaflets are thin and pliable. Moderate tricuspid regurgitation. RVSP is 55 mmHg + RA pressure. Pulmonic Valve The pulmonary valve is normal in structure. Mild pulmonic regurgitation. Great Vessels The aortic root is normal in size. The ascending aorta is normal in size. Pericardium There is no pericardial effusion. Other Information Study Quality: Fair Conclusion Normal LV systolic function. Mildly dilated RV with mild reduction in RV function. Biatrial dilation. Mild MR. Moderate TR. Elevated RVSP 55 mmHg + RA pressure. No evidence of LA or KELLEN thrombus or masses. Ultrasound enhancing agent demonstrates no evidence of KELLEN filling defect. Once DEQUAN demonstrated no evidence of LA or KELLEN thrombus, the patient underwent DCCV x 1 with 150J, after which she successfully converted from AFlutter to NSR. She remained stable throughout the procedure and thereafter. Electronically signed by : Sachi Aparicio MD 05/08/2024 17:45:31
[2024-05-05 10:03] VITALS: BMI 38.0
--- NOTE | 2024-05-05 10:10 | ECG_ITS ---
APPROVED REPORT Exam: Resting ECG HR:61 bpm ECG Measurements Heart Rate 61 AXES OR 185 P 153 QRSd 149 QRS 72 QT 439 T -42 QTc 443 Conclusion RBBB Aflutter with slow resopnse UNCONFIRMED REPORT Electronically signed by : Chester Wilson MD 05/06/2024 16:08:17
[2024-05-05 10:22] VITALS: BP 178/66; PULSE 62; RESP 16; TEMP 36.2; O2SAT 100
[2024-05-05] MEDS: LACTATED RINGERS 1000ML 1,000 ML 100 ML IV (10:38)
--- NOTE | 2024-05-05 10:45 | ECG_ITS ---
APPROVED REPORT Exam: Resting ECG HR:58 bpm ECG Measurements Heart Rate 58 AXES QRSd 136 QRS 62 QT 444 T -40 QTc 441 Conclusion ATRIAL FLUTTER/TACHYCARDIA WITH SLOW VENTRICULAR RESPONSE RIGHT BUNDLE BRANCH BLOCK [120+ ms QRS DURATION, UPRIGHT V1, 40+ ms S IN I/aVL/V4/V5/V6] MODERATE T-WAVE ABNORMALITY, CONSIDER LATERAL ISCHEMIA [-0.1+ mV T-WAVE IN I/aVL/V5/V6] MODERATE T-WAVE ABNORMALITY, CONSIDER INFERIOR ISCHEMIA [-0.1+ mV T-WAVE IN II/aVF] ABNORMAL ECG UNCONFIRMED REPORT Electronically signed by : Chester Wilson MD 05/06/2024 16:07:24
[2024-05-05 11:03] LABS: Basophils # 0.1 K/mm3 (0-0.2); Basophils % 1.2 % (0.1-2.0); Eosinophils # 0.3 K/mm3 (0.0-0.4); Hematocrit 37.6 % (37.0-47.0); Hemoglobin 12.3 g/dL (12.2-16.2); Lymphocytes # 1.5 K/mm3 (0.7-4.5); Lymphocytes % 22.9 % (10-50); Mean Corpuscular HGB Conc 32.7 g/dL (31.8-35.4); Mean Corpuscular Hemoglobin 33.7 pg (27.0-31.2); Mean Corpuscular Volume 102.9 fl (81-99); Monocytes # 0.4 K/mm3 (0.1-1.0); Monocytes % 5.4 % (1.7-9.3); Neutrophils # 4.4 K/mm3 (1.8-7.8); Neutrophils % 66.6 % (37.0-80.0); Platelet Count 315 K/mm3 (142-424); Red Blood Count 3.66 M/mm3 (4.20-5.40); White Blood Count 6.7 K/mm3 (4.8-10.8)
--- NOTE | 2024-05-05 11:03 | P.PNANES_ITS ---
[facility] Disclaimer: The information contained in this section may have been updated after the patient was seen, as this information can be updated by other users. Medical History Cataract Carpal tunnel syndrome HLD (hyperlipidemia) Atrial flutter Cataract, right Hematuria Anemia Renal insufficiency Ground glass opacity present on imaging of lung Shortness of breath Dizziness Edema of right lower extremity Hypertension Surgical History History of cataract surgery History of total hysterectomy Family History Mother Asthma Other Family history of CVA Family history of cancer Hypertension Social History Smoking Status: Never smoker alcohol intake: never substance use type: denies use current occupational status: retired Travel in the last 8 weeks: None caffeine: No [facility] Anesthesia Checklist Patient Identification Patient Identification: Arm Band Structural Data Admitted From: Home Planned Operative Procedure/s: DEQUAN/Cardioversion Consent for Planned Operative Procedure(s) Verified: Yes Verified Documents: Surgical Consent and History and Physical NPO Status Verified Time NPO: 00:00 Additional verifications Anesthesia Reactions: No Airway Assessment Mallampati Score:: Class II C-Spine Mobility Assessed: Yes TMJ Mobility Assessed: Yes Dentition: Edentulous Neurological Assessment Level of Consciousness: Awake, Alert and Appropriate Anesthesia Plan Anesthesia Risk discussed: Yes Anesthesia Plan: Verified ASA Class: III Anesthesia Type: MAC
[2024-05-05 11:08] LABS: Chloride 102 mmol/L (98-107); Potassium 4.2 mmoL/L (3.5-5.1); Sodium 137 mmol/L (136-145)
[2024-05-05 11:11] LABS: Blood Urea Nitrogen 19 mg/dl (7-17); Creatinine Clearance Estimated 52 mL/min (50-200); Estimated Glomerular Filt Rate 36 ml/min (>60); GFR (African American) 44 ML/MIN (>60)
[2024-05-05 11:12] LABS: Anion Gap 12.2 mEq/L (5-15); Calcium 9.6 mg/dl (8.4-10.2); Carbon Dioxide 27 mmol/L (22.0-30.0); Glucose 93 mg/dl (74-100); INR 1.28 (0.9-1.1); Prothrombin Time 13.6 seconds (10.1-12.5)
[2024-05-05 11:41] VITALS: O2SAT 98
--- NOTE | 2024-05-05 11:50 | ECG_ITS ---
APPROVED REPORT Exam: Resting ECG HR:55 bpm ECG Measurements Heart Rate 55 AXES MT 180 P 58 QRSd 144 QRS 62 QT 492 T 9 QTc 482 Conclusion SINUS BRADYCARDIA WITH OCCASIONAL SUPRAVENTRICULAR PREMATURE COMPLEXES RIGHT BUNDLE BRANCH BLOCK [120+ ms QRS DURATION, UPRIGHT V1, 40+ ms S IN I/aVL/V4/V5/V6] MODERATE T-WAVE ABNORMALITY, CONSIDER LATERAL ISCHEMIA [-0.1+ mV T-WAVE IN I/aVL/V5/V6] ABNORMAL ECG UNCONFIRMED REPORT Electronically signed by : Chester Wilson MD 05/06/2024 16:07:13
[2024-05-05 12:07] VITALS: BP 121/67; PULSE 62; RESP 14; O2SAT 98
[2024-05-05] MEDS: DEFINITY US ECHO CONTRAST 2ML INJ 2 MG IV (12:10)
--- NOTE | 2024-05-05 12:14 | SUR.OPER ---
1200- 150j shock delivered per Sachi. patient in nsr at this time. vss
[2024-05-05 12:17] VITALS: BP 126/68; PULSE 60; RESP 16; O2SAT 100
[2024-05-05 12:27] VITALS: BP 139/76; PULSE 61; RESP 16; O2SAT 100
[2024-05-05 12:38] VITALS: BP 165/78; PULSE 60; RESP 16; O2SAT 100
== END 2024-05-05 12:37 | disposition home or self-care (01) ==
PROVIDERS: PCP Physician Assistant; Visit Provider Internal Medicine
DX: I48.3 Typical atrial flutter (principal); Z79.899 Other long term (current) drug therapy; I10 Essential (primary) hypertension; I48.0 Paroxysmal atrial fibrillation; R94.31 Abnormal electrocardiogram [ECG] [EKG]
CPT/HCPCS: 36415; 80048; 85025; 85610; 92960; 93005; 93270; 93312; 93319; J7120; Q9957

== ENCOUNTER 2024-10-04 09:24 | Day surgery (SDC) | payer MEDICARE, OTHER, SELFPAY ==
[2024-09-30 14:35] VITALS: BMI 38.0
[2024-10-04] MEDS: TETRACAINE 0.5% OPTH SOL 15ML OP ×4 (11:15→11:37)
[2024-10-04] MEDS: PHENYLEPHRINE 2.5% OPHTH SOLN 2ML OP ×3 (11:15→11:25)
[2024-10-04] MEDS: CYCLOPENTOLATE 2% OPHTH SOLN 2ML BOTTLE OP ×3 (11:15→11:25)
[2024-10-04 11:24] VITALS: BP 164/60; PULSE 65; RESP 18; TEMP 36.3; O2SAT 99
[2024-10-04 12:45] VITALS: BP 143/66; PULSE 44; RESP 18; O2SAT 100
[2024-10-04] MEDS: MIDAZOLAM 2MG/2ML VIAL 1 MG IV (12:45)
[2024-10-04] MEDS: SODIUM CHLORIDE 0.9% 10ML FLUSH SYRINGE 10 ML IV (12:45)
[2024-10-04 12:50] VITALS: BP 160/70; PULSE 43; RESP 18; O2SAT 100
[2024-10-04] MEDS: TIMOLOL 0.5% OPTH SOLN 5ML OP (12:51)
[2024-10-04] MEDS: TOBRAMYCIN/DEX OPTH SUSP 2.5ML OP (12:52)
[2024-10-04] MEDS: LIDOCAINE 1% PF 2ML AMPULE 2 ML IJ (12:52)
[2024-10-04 12:55] VITALS: BP 144/63; PULSE 40; RESP 18; O2SAT 100
[2024-10-04 13:05] VITALS: BP 116/81; PULSE 50; RESP 18; TEMP 36.3; O2SAT 100
== END 2024-10-04 13:17 | disposition home or self-care (01) ==
PROVIDERS: PCP Physician Assistant; Visit Provider Ophthalmology
PROC: (CPT 66984; principal; 2024-10-04 12:00)
DX: H26.9 Unspecified cataract (principal)
CPT/HCPCS: 66984; J2250; V2632